=== PATIENT | male | born 1990 | race Caucasian/White ===

== ENCOUNTER 2018-12-22 18:42 | Emergency (ER) | payer BC ==
[2018-12-22] MEDS ORDERED: Silver Sulfadiazine 1% Crm 50 GM Tube TOP ONE (18:46)
[2018-12-22] MEDS ORDERED: Sodium Chloride 0.9% 1,000 ML IV ONE (18:47)
[2018-12-22] MEDS ORDERED: Morphine 2 MG/ML Syringe IVPUSH ONE (18:47)
[2018-12-22] MEDS ORDERED: Ondansetron 4 MG/2 ML SDV IVPUSH ONE (18:47)
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
[2018-12-22 18:59] VITALS: BP 141/81
== END 2018-12-22 19:38 | disposition home or self-care (01) ==
LOC: MW.ED 18:42
DX: T22.011A Burn of unspecified degree of right forearm, initial encounter (principal); T24.031A Burn of unspecified degree of right lower leg, initial encounter; Z88.8 Allergy status to other drugs, medicaments and biological substances
CPT/HCPCS: 16000; 96361; 96374; 96375; 99283; A9270; J2270; J2405; J7040; 99284

== ENCOUNTER 2020-09-13 16:27 | Emergency (ER) | payer OTHER ==
--- NOTE | 2020-09-13 18:38 | PCM.EKG ---
#1 Interpretation EKG Interpretation Comments: Heart rate = 84 bpm, normal sinus rhythm, normal QRS interval, no STEMI. EKG and rhythm strip interpreted by me at 1831
[2020-09-13 19:05] LABS: BLOOD UREA NITROGEN,BUN 15 mg/dL (7.0-18.0); CARBON DIOXIDE,CO2 25.2 mmol/L (21.0-32.0); CHLORIDE,CL 102 mmol/L (98-107); GLUCOSE RANDOM 89 mg/dL (74-106); POTASSIUM,K 4.2 mmol/L (3.5-5.1); SODIUM,NA 138 mmol/L (136-148)
--- NOTE | 2020-09-13 19:50 | EDM.PDOC ---
ED HPI GENERAL MEDICAL PROBLEM - General Chief Complaint: Gastrointestinal Problem Stated Complaint: DIARRHEA Time Seen by Provider: 09/13/20 19:36 Source of Information: Reports: Patient History Limitations: Reports: No Limitations - History of Present Illness INITIAL COMMENTS - FREE TEXT/NARRATIVE: HISTORY AND PHYSICAL: History of present illness: Patient is a 30-year-old male presented to the ED with diarrhea x1 day. Patient states that last night he began to feel nauseous and experienced some fatigue. He states later that night he woke up and had diarrhea, watery and non bloody. States since then he has had numerous episodes of watery diarrhea associated abdominal cramping during the episodes of diarrhea. Patient states he is only taken in water and Pedialyte but no medications. Patient denies any palliative or provocative measures. Patient states the reason he came to the ED today was to get a work note and does not want a full evaluation. Patient denies fever, chills, chest pain, shortness of breath, or cough. Denies headache, neck stiff ness, change in vision, syncope, or near syncope. Denies nausea, vomiting, abdominal pain, diarrhea, constipation, or dysuria. Has not noted any blood in urine or stool. Patient has been eating and drinking appropriately. Review of systems: As per history of present illness and below otherwise all systems reviewed and negative. Past medical history: As per history of present illness and as reviewed below otherwise noncontributory. Surgical history: As per history of present illness and as reviewed below otherwise noncontributory. Social history: See social history for further information Family history: As per history of present illness and as reviewed below otherwise noncontributory. Physical exam: General: Patient is alert, oriented, and in no acute distress. Patient sitting comfortably on exam table. Vitals stable and reviewed by me. HEENT: Atraumatic, normocephalic, pupils equal and reactive bilaterally, negative for conjunctival pallor or scleral icterus, mucous membranes moist, TMs normal bilaterally, throat clear, neck supple, nontender, trachea midline. No drooling or trismus noted. No meningeal signs. No hot potato voice noted. Lungs: Clear to auscultation, breath sounds equal bilaterally, chest nontender. Heart: S1S2, regular rate and rhythm without overt murmur Abdomen: Soft, nondistended, nontender. Negative for masses or hepatosplenomegaly. Negative for costovertebral tenderness. Pelvis: Stable nontender. Genitourinary: Deferred. Rectal: Deferred. Skin: Intact, warm, dry. No lesions or rashes noted. Extremities: Atraumatic, negative for cords or calf pain. Neurovascular unremarkable. Neuro: Awake, alert, oriented. Cranial nerves II through XII unremarkable. Ce rebellum unremarkable. Motor and sensory unremarkable throughout. Exam nonfocal. Notes: Upon initial exam, patient is well-appearing and vitally stable. Due to status of the emergency room, patient was initially triaged and out in the waiting room. At that time, Dr. Bethea, initiated routine labwork (CBC, CMP, lactate, UA, and EKG), while patient was out in the waiting room. Patient states that he would not like an evaluation and just came to the emergency room for a work note. Patient states that he has not had any episodes of diarrhea since coming to the emergency room. Signs and symptoms that were prompt return to the ED thoroughly discussed with patient. Discussed importance for follow-up with primary care provider. Voices understanding and is agreeable to plan of care. Denies any further questions or concerns at this time. Diagnostics: CBC, CMP, lactate, UA, EKG (Ordered by Dr. Bethea) Therapeutics: None Prescription: None Impression: Diarrhea Medical screening exam Plan: 1. Follow-up with a primary care provider as discussed. Return to the ED as needed and as discussed. 2. Encourage small but frequent sips of fluid to prevent dehydration. Definitive disposition and diagnosis as appropriate pending reevaluation and review of above. Abdominal Pain Score (Numeric/FACES): 2 - Related Data Allergies Allergy/AdvReac Type Severity Reaction Status Date / Time diphenhydramine HCl Allergy Sweating Verified 09/13/20 16:58 [From Benadryl] hydromorphone HCl Allergy Other Verified 09/13/20 16:58 [From Dilaudid] NSAIDS (Non-Steroidal Allergy Sweating Verified 09/13/20 16:58 Anti-Inflamma promethazine HCl Allergy Numbness Verified 09/13/20 16:58 [From Phenergan] Home Meds: Home Meds . 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 ED EXAM, GENERAL - Physical Exam Exam: See Below (see dictation) Course - Vital Signs Last Recorded V/S: Last Vital Signs Temp 98.2 F 09/13/20 17:00 Pulse 88 09/13/20 20:00 Resp 18 09/13/20 20:00 BP 110/88 09/13/20 20:00 Pulse Ox 95 09/13/20 20:00 - Orders/Labs/Meds Labs: Laboratory Tests 09/13/20 09/13/20 09/13/20 Range/Units 18:25 18:25 18:25 WBC 8.48 (4.0-11.0) K/uL RBC 5.01 (4.50-5.90) M/uL Hgb 15.8 (13.0-17.0) g/dL Hct 46.2 (38.0-50.0) % MCV 92.2 (80.0-98.0) fL MCH 31.5 (27.0-32.0) pg MCHC 34.2 (31.0-37.0) g/dL RDW Std Deviation 44.5 (28.0-62.0) fl RDW Coeff of Angela 13 (11.0-15.0) % Plt Count 200 (150-400) K/uL MPV 9.00 (7.40-12.00) fL Neut % (Auto) 79.3 (48.0-80.0) % Lymph % (Auto) 14.0 L (16.0-40.0) % [place] % (Auto) 6.3 (0.0-15.0) % Eos % (Auto) 0.2 (0.0-7.0) % Baso % (Auto) 0.2 (0.0-1.5) % Neut # (Auto) 6.7 H (1.4-5.7) K/uL Lymph # (Auto) 1.2 (0.6-2.4) K/uL [place] # (Auto) 0.5 (0.0-0.8) K/uL Eos # (Auto) 0.0 (0.0-0.7) K/uL Baso # (Auto) 0.0 (0.0-0.1) K/uL Nucleated RBC % 0.0 /100WBC Nucleated RBCs # 0 K/uL Lactate 0.9 (0.20-2.00) mmol/L Sodium 138 (136-148) mmol/L Potassium 4.2 (3.5-5.1) mmol/L Chloride 102 (98-107) mmol/L Carbon Dioxide 25.2 (21.0-32.0) mmol/L BUN 15 (7.0-18.0) mg/dL Creatinine 1.2 (0.8-1.3) mg/dL Est Cr Clr Drug Dosing 94.13 mL/min Estimated GFR (MDRD) > 60.0 ml/min Glucose 89 (74-106) mg/dL Calcium 8.7 (8.5-10.1) mg/dL Total Bilirubin 0.4 (0.2-1.0) mg/dL AST 31 (15-37) IU/L ALT 75 H (14-63) IU/L Alkaline Phosphatase 55 (46-116) U/L Total Protein 7.7 (6.4-8.2) g/dL Albumin 4.2 (3.4-5.0) g/dL Globulin 3.5 (2.6-4.0) g/dL Albumin/Globulin Ratio 1.2 (0.9-1.6) Departure - Departure Time of Disposition: 19:56 Disposition: Home, Self-Care 01 Clinical Impression: Encounter for medical screening examination Diarrhea Qualifiers: Diarrhea type: unspecified type Qualified Code(s): R19.7 - Diarrhea, unspecified - Discharge Information Instructions: Medical Screening Exam Referrals: Sha Whipple NP [Primary Care Provider] - Forms: ED Department Discharge Additional Instructions: The following information is given to patients seen in the emergency department who are being discharged to home. This information is to outline your options for follow-up care. We provide all patients seen in our emergency department with a follow-up referral. The need for follow-up, as well as the timing and circumstances, are variable depending upon the specifics of your emergency department visit. If you don't have a primary care physician on staff, we will provide you with a referral. We always advise you to contact your personal physician following an emergency department visit to inform them of the circumstance of the visit and for follow-up with them and/or the need for any referrals to a consulting specialist. The emergency department will also refer you to a specialist when appropriate. This referral assures that you have the opportunity for follow-up care with a specialist. All of these measure are taken in an effort to provide you with optimal care, which includes your follow-up. Under all circumstances we always encourage you to contact your private physician who remains a resource for coordinating your care. When calling for follow-up care, please make the office aware that this follow-up is from your recent emergency room visit. If for any reason you are refused follow-up, please contact the [facility] Emergency Department at and asked to speak to the emergency department charge nurse. [facility] [address] [place] [id number] [address] [id number] 1. Follow-up with a primary care provider as discussed. Return to the ED as needed and as discussed. 2. Encourage small but frequent sips of fluid to prevent dehydration. Sepsis Event Note (ED) - Evaluation Sepsis Screening Result: No Definite Risk
[2020-09-14 01:40] VITALS: BP 110/88; PULSE 88
== END 2020-09-13 20:01 | disposition home or self-care (01) ==
LOC: MW.ED 16:27
DX: R19.7 Diarrhea, unspecified (principal); Z88.6 Allergy status to analgesic agent; Z88.5 Allergy status to narcotic agent; Z88.8 Allergy status to other drugs, medicaments and biological substances
CPT/HCPCS: 36415; 80053; 83605; 85025; 93005; 93010; 99282; 99284-25

== ENCOUNTER 2024-07-10 08:24 | Emergency (ER) | payer OTHER ==
[2024-07-10] MEDS: Sodium Chloride 0.9% 1,000 ML IV ONE (09:31)
[2024-07-10 09:51] LABS: BASOPHILS ABSOLUTE AUTO 0.06 K/uL (0.00-0.20); BASOPHILS PERCENT AUTO 0.7 % (0.0-1.0); EOSINOPHILS ABSOLUTE AUTO 0.11 K/uL (0.00-0.45); EOSINOPHILS PERCENT AUTO 1.2 % (0.0-6.0); HEMATOCRIT 41.8 % (42.0-52.0); HEMOGLOBIN 14.5 g/dL (14.0-18.0); IMMATURE GRAN ABSOLUTE AUTO 0.03 K/uL (0.00-0.05); IMMATURE GRAN PERCENT AUTO 0.3 % (0.0-0.4); LYMPHOCYTES ABSOLUTE AUTO 2.03 K/uL (1.00-4.80); LYMPHOCYTES PERCENT AUTO 22.6 % (24.0-44.0); MEAN CORPUSCULAR HGB CONC 34.7 g/dL (32.0-36.0); MEAN CORPUSCULAR VOLUME 89.5 fL (83.0-99.0); MEAN PLATELET VOLUME 8.8 fL (9.4-12.4); MONOCYTES ABSOLUTE AUTO 0.65 K/uL (0.00-0.80); MONOCYTES PERCENT AUTO 7.2 % (0.0-8.0); NEUTROPHILS ABSOLUTE AUTO 6.12 K/uL (1.80-7.70); PLATELET COUNT,PLT 254 K/uL (150-400); RED BLOOD CELL COUNT 4.67 M/uL (4.52-5.90)
[2024-07-10 10:24] LABS: A/G RATIO 1.1 (0.9-1.6); ALBUMIN 3.8 g/dL (3.4-5.0); BILIRUBIN TOTAL 0.3 mg/dL (0.2-1.0); CREATININE 1.1 mg/dL (0.8-1.3); EST CRCL DRUG DOSING (CG) 98.88 mL/min; POTASSIUM,K 4.8 mmol/L (3.5-5.1); PROTEIN TOTAL,TP 7.2 g/dL (6.4-8.2)
[2024-07-10 12:51] VITALS: BP 111/71; PULSE 82
== END 2024-07-10 12:51 | disposition home or self-care (01) ==
LOC: MW.ED 08:24
DX: R55 Syncope and collapse (principal); F17.210 Nicotine dependence, cigarettes, uncomplicated; Z88.8 Allergy status to other drugs, medicaments and biological substances; Z88.5 Allergy status to narcotic agent; Z88.6 Allergy status to analgesic agent; Z75.8 Other problems related to medical facilities and other health care
CPT/HCPCS: 36415; 71045; 71045-26; 80053; 82550; 83605; 84484; 85025; 85379; 93005; 93010; 96360; 99284; 99284-25; J7030